=== PATIENT | male | born 1975 | race Caucasian/White ===

== ENCOUNTER 2022-10-11 08:24 | Day surgery (SDC) | payer OTHER ==
[2022-10-11] MEDS ORDERED: Propofol 200 MG/20 ML SDV IV ONE (08:25)
[2022-10-11] MEDS ORDERED: Lactated Ringers 1,000 ML IV SCH (08:30)
[2022-10-11] MEDS ORDERED: Sodium Chloride 0.9% 10 ML Syringe FLUSH PRN (08:30)
[2022-10-11] MEDS ORDERED: Simethicone Drops 40 MG/0.6 ML 30 ML Bottle PO ONE (10:00)
== END 2022-10-11 11:18 | disposition home or self-care (01) ==
LOC: FB.SDS 08:24
PROVIDERS: ATTEND Surgery
DX: Z12.11 Encounter for screening for malignant neoplasm of colon (principal); K40.90 Unilateral inguinal hernia, without obstruction or gangrene, not specified as recurrent; J45.909 Unspecified asthma, uncomplicated; Z79.899 Other long term (current) drug therapy
CPT/HCPCS: 00812; 45378; A9270; J2704; J7120